=== PATIENT | male | born 1995 | race African-American/Black ===

== ENCOUNTER 2017-10-25 19:39 | Inpatient (IN) | payer OTHER ==
[2017-10-25 21:08] LABS: HEMATOCRIT 42.1 % (42.0-52.0); HEMOGLOBIN 14.4 g/dl (13.5-17.5); MEAN CORPUSCULAR HGB CONC 34.2 g/dl (32.0-36.5); MEAN CORPUSCULAR VOLUME 90.5 fl (80.0-96.0); PLATELET COUNT, AUTOMATED 229 10^3/uL (150-450); RED BLOOD COUNT 4.65 10^6/uL (4.30-6.10); RED CELL DISTRIBUTION WIDTH 11.9 % (11.5-14.5); WHITE BLOOD COUNT 6.9 10^3/uL (4.0-10.0)
[2017-10-25 21:43] LABS: ACETAMINOPHEN LEVEL < 2.0 UG/ML (10.0-30.0); ALBUMIN/GLOBULIN RATIO 1.18 (1.00-1.93); ALKALINE PHOSPHATASE 93 U/L (45-117); ALT/SGPT 14 U/L (12-78); ANION GAP 8 MEQ/L (8-16); AST/SGOT 10 U/L (7-37); BILIRUBIN,DIRECT 0.1 MG/DL (0.0-0.2); BILIRUBIN,TOTAL 0.4 MG/DL (0.2-1.0); BLOOD UREA NITROGEN 18 MG/DL (7-18); CALCIUM LEVEL 8.7 MG/DL (8.5-10.1); CARBON DIOXIDE LEVEL 26 MEQ/L (21-32); CHLORIDE LEVEL 108 MEQ/L (98-107); CREATININE FOR GFR 1.04 MG/DL (0.70-1.30); ETHYL ALCOHOL (ETHANOL) < 0.003 % (0.000-0.010); GLOMERULAR FILTRATION RATE > 60.0 (>60); GLUCOSE, FASTING 110 MG/DL (70-100); POTASSIUM SERUM 4.1 MEQ/L (3.5-5.1); SALICYLATE LEVEL < 1.7 MG/DL (5.0-30.0); SODIUM LEVEL 142 MEQ/L (136-145); TOTAL PROTEIN 7.4 GM/DL (6.4-8.2)
[2017-10-25 21:52] LABS: AMPHETAMINES LEVEL URINE NEGATIVE (NEGATIVE); BARBITURATES URINE NEGATIVE (NEGATIVE); BENZODIAZEPINES URINE NEGATIVE (NEGATIVE); CANNABINOIDS URINE POSITIVE (NEGATIVE); COCAINE METABOLITE URINE NEGATIVE (NEGATIVE); METHADONE URINE NEGATIVE (NEGATIVE); OPIATES URINE NEGATIVE (NEGATIVE); PHENCYCLIDINE URINE NEGATIVE (NEGATIVE)
[2017-10-25] MEDS ORDERED: traZODone 50 MG TAB PO (22:15)
[2017-10-25] MEDS ORDERED: ACETAMINOPHEN TAB 650MG DOSE (2X325MG) PO (22:15)
[2017-10-25] MEDS ORDERED: MAALOX 30 ML SUSP *UDC PO (22:15)
[2017-10-25] MEDS ORDERED: MOM 30ML SUSPENSION UDC PO (22:15)
[2017-10-26] MEDS: NICOTINE 21MG/24HR 1 EA TRANSDERMAL TD (09:00)
[2017-10-26] MEDS: SERTRALINE HCL 25 MG TABLET PO (14:50)
[2017-10-27] MEDS: NICOTINE 21MG/24HR 1 EA TRANSDERMAL TD (09:00)
[2017-10-27] MEDS: SERTRALINE HCL 25 MG TABLET PO (09:54)
[2017-10-28] MEDS: SERTRALINE HCL 25 MG TABLET PO (08:24)
[2017-10-28] MEDS: NICOTINE 21MG/24HR 1 EA TRANSDERMAL TD (09:55)
[2017-10-29] MEDS: NICOTINE 21MG/24HR 1 EA TRANSDERMAL TD (08:16)
[2017-10-29] MEDS: SERTRALINE HCL 25 MG TABLET PO (08:16)
[2017-10-30] MEDS: NICOTINE 7 MG/24 HR TRANSDERMAL TD (08:17)
[2017-10-30] MEDS: SERTRALINE HCL 25 MG TABLET PO (08:17)
[2017-10-31] MEDS: NICOTINE 7 MG/24 HR TRANSDERMAL TD (09:00)
[2017-10-31] MEDS: SERTRALINE HCL 25 MG TABLET PO (09:14)
== END 2017-10-31 10:30 | disposition home or self-care (01) | DRG 885 ==
LOC: M PSY 10-26 04:00 → M ED 19:39 → M ED INP 22:06
DX: F32.4 Major depressive disorder, single episode, in partial remission (principal); F12.90 Cannabis use, unspecified, uncomplicated; Z59.8 Other problems related to housing and economic circumstances; Z63.0 Problems in relationship with spouse or partner; F41.9 Anxiety disorder, unspecified; J45.909 Unspecified asthma, uncomplicated; F17.290 Nicotine dependence, other tobacco product, uncomplicated